=== PATIENT | male | born 1960 | race Caucasian/White ===

== ENCOUNTER 2017-11-27 05:45 | Day surgery (SDC) | payer OTHER ==
[~2017-11-27 05:45] MED LIST: COLACE100 MG PO; FENOFIBRATE40 MG PO; PERCOCET 5-3251 EACH PO; SIMVASTATIN10 MG PO; TENORMIN50 M1 PO
[2017-11-27] MEDS ORDERED: PERCOCET 5-3251 EACH PO (08:19)
[2017-11-27] MEDS ORDERED: COLACE100 MG PO (08:19)
== END 2017-11-27 11:50 | disposition home or self-care (01) ==
LOC: CIR.AMB 05:45
DX: K60.3 Anal fistula (principal); K62.89 Other specified diseases of anus and rectum